=== PATIENT | male | born 1980 | race Caucasian/White ===

== ENCOUNTER 2016-11-24 20:15 | Emergency (ER) | payer OTHER ==
[2016-11-24] MEDS ORDERED: OXYCODONE/APAP 5/325 TAB ONE (20:38)
[2016-11-24] MEDS ORDERED: OXYCODONE/APAP 5/325 TAB PO ONE (20:39)
[2016-11-24] MEDS ORDERED: OXYCODONE/APAP 5/325MG PREPACK#4 BTL TAKEHOME ONE (20:41)
--- NOTE | 2016-11-24 20:41 | EDPHY ---
H & P Time Seen by Provider: 11/24/16 20:26 HPI/ROS: CHIEF COMPLAINT: Right leg injury HISTORY OF PRESENT ILLNESS: Patient was playing soccer and was kicked in the [place]ry just prior to arrival, arrives via private vehicle with pain between the knee and the ankle on the right leg. REVIEW OF SYSTEMS: No weakness or numbness in the foot PAST MEDICAL HISTORY: Left foot fracture Social history: Lives in [place] General Appearance: Alert and conversant, cooperative. Right mid [place]ry abrasion but no laceration. Tenderness and swelling to lower [place]ry area but normal motor and sensory in the foot. Compartments are soft. Knee is not tender and ankle is not tender. Emergency Department course/MDM: Does not appear to be open. X-rays reviewed with the patient include nondisplaced transverse tibia x1, and and fibula fractures x2. Procedure: Splint placement. A long leg three-way posterior Ortho Glass leg splint was applied. After application of the splint I returned and re-examined the patient at 2120. The splint was adequately immobilizing the joint and distal to the splint the patient's circulation and sensation was intact. Compartment syndrome signs discussed. Follow up with Dr. Ferrer or with [facility] through his PCP. Smoking Status: Never smoked Constitutional: Initial Vital Signs Temperature (C) 36.8 C 11/24/16 20:22 Heart Rate 92 11/24/16 20:22 Respiratory Rate 24 H 11/24/16 20:22 Blood Pressure 153/113 H 11/24/16 20:22 O2 Sat (%) 100 11/24/16 20:22 O2 Delivery Mode Room Air Allergies/Adverse Reactions: No Known Allergies Allergy (Unverified 11/24/16 20:22) Home Medications: Medication Instructions Recorded oxyCODONE/APAP 5/325 [Percocet] 1 - 2 tab PO Q4-6PRN PRN #11 tab 11/24/16 MDM/Departure - MDM Imaging Results: Imaging Impressions Tibia/Fibula X-Ray 11/24/16 20:25 Impression: 1. Nondisplaced fracture mid to distal shaft right tibia. 2. Fractures of the mid and distal shaft without displacement of the right fibula. Medications Given: Discontinued Medications Oxycodone/Acetaminophen (Percocet 5/325) 2 tab PO EDNOW ONE Stop: 11/24/16 20:40 Last Admin: 11/24/16 20:41 Dose: 2 tab Oxycodone/Acetaminophen (Percocet 5/325mg Prepack#4) 1 btl TAKEEDMONDE EDNOW ONE Stop: 11/24/16 20:42 Last Admin: 11/24/16 21:27 Dose: 1 btl - Depart Disposition: Home, Routine, Self-Care Clinical Impression: Tibia/fibula fracture, shaft Qualifiers: Encounter type: initial encounter Fracture type: closed Laterality: right Qualified Code(s): S82.201A - Unspecified fracture of shaft of right tibia, initial encounter for closed fracture Condition: Good Instructions: Narcotic-Analgesic/Acetaminophen (By mouth), Leg Fracture (ED) Additional Instructions: Crutches with nonweightbearing. Call our orthopedist or [facility] orthopedist through your primary care doctor, Dr. Portillo for follow-up in 48 hours. Immediate evaluation if you can' t feel your foot, if you have severe foot pain , if you see your toes turning blue, or you have foot numbness. Prescriptions: oxyCODONE/APAP 5/325 [Percocet] 1 - 2 tab PO Q4-6PRN PRN #11 tab PRN Reason: Pain Referrals: Romeo Ferrer MD [Medical Doctor] - As per Instructions
[2016-11-24 21:33] VITALS: BP 140/73; PULSE 83; RESP 20; TEMP 97.9; O2SAT 94
== END 2016-11-24 21:31 | disposition home or self-care (01) ==
PROC: 2W3LX1Z Immobilization of Right Lower Extremity using Splint (ICD-10-PCS; principal; 2016-11-24)
DX: S82.201A Unspecified fracture of shaft of right tibia, initial encounter for closed fracture (principal); S82.401A Unspecified fracture of shaft of right fibula, initial encounter for closed fracture; W22.8XXA Striking against or struck by other objects, initial encounter; Y99.8 Other external cause status; Y93.66 Activity, soccer